=== PATIENT | male | born 1965 | race Caucasian/White ===

== ENCOUNTER 2023-10-27 07:57 | Emergency (ER) | payer OTHER ==
[~2023-10-27] VITALS: Ht 175.3 cm; Wt 99.8 kg
[2023-10-27 07:59] VITALS: BP_SYST 195; PULSE 84; RESP 15; TEMP 96.8; O2SAT 98
[2023-10-27 09:13] VITALS: BP_SYST 158; PULSE 78; RESP 16; TEMP 97.7; O2SAT 97
== END 2023-10-27 08:52 | disposition home or self-care (01) ==
LOC: SED 07:57
DX: R20.0 Anesthesia of skin (principal); R42 Dizziness and giddiness; I10 Essential (primary) hypertension; Z88.0 Allergy status to penicillin; Z98.890 Other specified postprocedural states
CPT/HCPCS: 93005; 99283